=== PATIENT | female | born 1985 | race Hispanic/Latino ===

== ENCOUNTER 2018-08-29 15:21 | Emergency (ER) | payer MEDICAID, SELFPAY ==
[2018-08-29] MEDS ORDERED: Ketorolac Tromethamine 30 MG/ML VIAL ONE (16:00)
[2018-08-29] MEDS ORDERED: Acetaminophen 500 MG TAB ONE (16:00)
[2018-08-29] MEDS ORDERED: Metoclopramide HCl 10 MG/2 ML VIAL ONE (16:00)
[2018-08-29] MEDS ORDERED: diphenhydrAMINE 50 MG/ML VIAL ONE (16:00)
[2018-08-29 16:32] LABS: #Basophils 0.1 thou/uL (0.0-0.2); #Eosinphils 0.1 thou/uL (0.0-0.7); #Lymphocytes 2.4 thou/uL (1.20-3.40); #Monocytes 0.7 thou/uL (0.11-0.59); #Neutrophils 4.3 thou/uL (1.40-6.50); %Basophils 1.1 % (0.0-1.0); %Monocytes 8.7 % (0.0-10.0); %Neutrophils 57.2 % (42.0-75.0); Hemoglobin 11.5 g/dL (12.0-16.0); Mean Corpuscular HGB CONC 30.4 g/dL (32.0-36.0); Mean Corpuscular Hemoglobin 25.8 pg (27.0-31.0); Mean Corpuscular Volume 84.9 fL (78.0-98.0); Mean Platelet Volume 8.7 fL (7.4-10.4); Platelet Count 222 thou/uL (130-400); Red Blood Cell (RBC) Count 4.45 mill/uL (4.20-5.40); White Blood Cell (WBC) Count 7.5 thou/uL (4.8-10.8)
[2018-08-29 16:40] LABS: Anion Gap 14 mmol/L (10-20); BUN (Urea Nitrogen) 8 mg/dL (7.0-18.7); Calc. Creatinine Clearance 0 mL/min (70-130); Calcium 9.5 mg/dL (7.8-10.44); Carbon Dioxide 25 mmol/L (22-29); Chloride 106 mmol/L (98-107); Estimated GFR-MDRD Greater than 90; Glucose 86 mg/dL (70-105); Potassium 3.8 mmol/L (3.5-5.1); Sodium 141 mmol/L (136-145)
[2018-08-29] MEDS ORDERED: Dexamethasone 4 MG TAB ONE (17:00)
[2018-08-29] MEDS ORDERED: traMADol HCl 50 MG TAB ONE (17:00)
--- NOTE | 2018-08-29 17:42 | CT ---
CT BRAIN: Date: 08/29/18 HISTORY: 33-year-old female with headache. TECHNIQUE: Noncontrast enhanced CT images of brain obtained from the base of the skull to the vertex. Brain and bone windows are obtained. FINDINGS: Noncontrast enhanced CT images of the brain demonstrate the brain to be unremarkable. No evidence of intracranial masses, hemorrhages, strokes, or contusions seen. The ventricles are of normal size. IMPRESSION: Normal CT brain. POS: [facility]
== END 2018-08-29 17:17 | disposition home or self-care (01) ==
LOC: SCSER 15:21
DX: R51 Headache (principal)
CPT/HCPCS: 70450; 80048; 85025; 96361; 96374; 96375; J1200; J1885; J2765; J8540

== ENCOUNTER 2019-04-29 11:37 | Emergency (ER) | payer OTHER, SELFPAY ==
[~2019-04-29 11:37] MED LIST: Iopamidol 370 76% 100 ML VIAL ONE
[2019-04-29] MEDS ORDERED: Morphine 4 MG/ML VIAL ONE (12:01)
[2019-04-29] MEDS ORDERED: Ondansetron PF 4 MG/2 ML Vial ONE (12:01)
[2019-04-29 12:03] LABS: #Basophils 0.1 thou/uL (0.0-0.2); #Lymphocytes 1.8 thou/uL (1.20-3.40); #Monocytes 0.5 thou/uL (0.11-0.59); #Neutrophils 4.5 thou/uL (1.40-6.50); %Basophils 0.9 % (0.0-1.0); %Eosinophils 0.5 % (0.0-10.0); %Neutrophils 65.7 % (42.0-75.0); Hemoglobin 11.6 g/dL (12.0-16.0); Mean Corpuscular HGB CONC 33.7 g/dL (32.0-36.0); Mean Corpuscular Hemoglobin 28.5 pg (27.0-31.0); Mean Corpuscular Volume 84.4 fL (78.0-98.0); Mean Platelet Volume 7.8 fL (7.4-10.4); Platelet Count 233 thou/uL (130-400); Red Blood Cell (RBC) Count 4.08 mill/uL (4.20-5.40); White Blood Cell (WBC) Count 6.9 thou/uL (4.8-10.8)
[2019-04-29 12:03] LABS: Bilirubin Negative (Negative); Blood, Urine Negative (Negative); Clarity Clear (Clear); Glucose, Urine (Dipstick) Negative (Negative); Leukocyte Negative (Negative); Nitrite Negative (Negative); Protein, Urine (Dipstick) Negative (Neg-Trace); Specific Gravity, Urine 1.015 (1.005-1.030); Urobilinogen 0.2 mg/dL (0.2-1.0)
[2019-04-29 12:11] LABS: BHCG - Serum Negative (NEGATIVE); Pregs Control Background? CLEAR/WHITE (CLR/WHITE); Pregs Control Bar Appear? YES (CONTROL BAR)
[2019-04-29 12:20] LABS: ALT (SGPT) 14 U/L (8-55); AST (SGOT) 18 U/L (5-34); Albumin 4.2 g/dL (3.5-5.0); Alkaline Phosphatase 46 U/L (40-150); Anion Gap 13 mmol/L (10-20); BUN (Urea Nitrogen) 7 mg/dL (7.0-18.7); Bilirubin, Total 0.3 mg/dL (0.2-1.2); Calc. Creatinine Clearance 0 mL/min (70-130); Carbon Dioxide 24 mmol/L (22-29); Chloride 104 mmol/L (98-107); Estimated GFR-MDRD Greater than 90; Globulin 2.7 g/dL (2.4-3.5); Glucose 96 mg/dL (70-105); Potassium 3.8 mmol/L (3.5-5.1); Protein, Total 6.9 g/dL (6.0-8.3); Sodium 137 mmol/L (136-145)
--- NOTE | 2019-04-29 13:14 | CT ---
EXAM: CT abdomen and pelvis with IV contrast PROVIDED CLINICAL HISTORY: Abdominal pain COMPARISON: None FINDINGS: The visualized lung bases are free of significant opacity. The solid abdominal organs demonstrate an unremarkable CT appearance. There is somewhat heterogeneous enhancement of the uterus and adnexal structures with a small amount of free pelvic fluid, presumably on the basis of phase of menstruation. There is conspicuous distention of the urinary bladder. There is moderate colonic fecal retention. There is no evidence fo r bowel obstruction, inflammatory fat stranding or free air. The appendix appears normal. No regional lymph node enlargement apparent. The regional major vascular structures appear unremarkab le. The osseous structures demonstrate no concerning lytic or blastic lesions. IMPRESSION: 1. Likely physiologic changes involving the uterus and adnexa. Correlate with concerns for pelvic inf lammatory disease. 2. Findings suggesting constipation. 3. Conspicuous distention of the urinary bladder.
== END 2019-04-29 13:38 | disposition home or self-care (01) ==
LOC: SCSER 11:37
DX: R10.32 Left lower quadrant pain (principal); R10.812 Left upper quadrant abdominal tenderness
CPT/HCPCS: 36415; 74177; 80053; 81003; 84703; 85025; 96361; 96374; 96375; J2270; J2405; Q9967